=== PATIENT | male | born 1990 | race African-American/Black ===

== ENCOUNTER 2016-05-13 09:57 | Emergency (ER) | payer OTHER ==
[~2016-05-13] VITALS: Ht 170.2 cm; Wt 63.5 kg
[2016-05-13 09:57] VITALS: BP 128/80
[2016-05-13 10:42] LABS: URINE BILIRUBIN NEGATIVE (Negative); URINE BLOOD NEGATIVE (Negative); URINE COLOR YELLOW; URINE GLUCOSE-RANDOM* NEGATIVE (Negative); URINE KETONES NEGATIVE (Negative); URINE NITRITE NEGATIVE (Negative); URINE PROTEIN (DIPSTICK) NEGATIVE (Negative); URINE SPECIFIC GRAVITY >= 1.030 (1.003-1.035); URINE UROBILINOGEN 0.2 E.U./dl (0.2-1.0)
[2016-05-13] MEDS ORDERED: FLAGYL500 MG PO (11:26)
== END 2016-05-13 11:36 | disposition home or self-care (01) ==
LOC: ER 09:57
PROVIDERS: Nurse Practitioner
DX: Z20.2 Contact with and (suspected) exposure to infections with a predominantly sexual mode of transmission (principal)